=== PATIENT | female | born 1975 | race Caucasian/White ===

== ENCOUNTER 2025-07-15 20:16 | Emergency (ER) | payer OTHER, SELFPAY ==
[2025-07-15 20:20] VITALS: BP 137/83
[2025-07-15] MEDS: DECADRON 10 MG PO (21:39)
[2025-07-15] MEDS: TORADOL 15 MG IV (21:39)
[2025-07-15 21:48] LABS: Hematocrit 37.6 % (37.0-47.0); Hemoglobin 12.6 g/dL (12.0-16.0); Mean Corp Hgb Conc. 33.5 g/dL (33.0-37.0); Mean Corpuscular Volume 90.4 fL (81.0-99.0); Nucleated Red Blood Cells % 0 %; Platelet Count 305 10^3/uL (130-400); Red Cell Dist. Width 13.1 % (11.5-14.5)
--- NOTE | 2025-07-15 22:04 | ED.GENMED ---
History of Present Illness
General
Chief Complaint: Throat Problem
Time Seen by Provider: 07/15/25 20:53
History of Present Illness
History of Present Illness:
50-year-old female without significant past history presenting for left-sided throat pain. Patient notes that symptoms started yesterday. She reports that she had throat discomfort 2 weeks ago, was seen in urgent care and tested negative for
strep, however they did start her on antibiotics and symptoms improved after antibiotics. Symptoms went away, however again returned yesterday. Reports pain with swallowing. Denies fever or additional infectious symptoms. Denies prior history of
strep throat. Denies chest pain or difficulty breathing. No additional history obtained at this time.
Phy Exam
Physical Exam
Physical Exam:
General: Well-appearing, no clinical signs of dehydration, nontoxic and in no acute distress
HEENT: protecting airway, isolated swelling to the left tonsillar region without significant erythema. No exudates. No palpable fluctuance. No trismus or muffled voice.
Neck: appears supple
CV: Normal heart rate
Resp: No accessory muscle use, no increased work of breathing
Abd: No distention
Extremities: No deformities, no swelling
Neuro: alert, no focal neurologic deficit
: deferred
Rectal: deferred
Psych: Normal affect
Skin: Intact
Course
Orders/Labs/Results
Orders:
Orders
07/15/25 21:16
CT Neck With Iv Contrast Urgent
Comment:
Reason For Exam: L-tonsilar swelling and pain
Dexamethasone Pf [Decadron] 10 mg PO NOW STA
07/15/25 21:17
Ketorolac [Toradol] 15 mg IV NOW STA
07/15/25 21:38
Complete Blood Count/With Diff Urgent
Comprehensive Metabolic Panel Urgent
Monotest Urgent
Rapid Strep Group A Urgent
NINA Source: Throat/Pharynx
Specimen Description:
Date Specimen was Collected: 07/15/25
Time Specimen was Collected: 21:36
07/15/25 23:34
Clindamycin HCl [Cleocin] 450 mg PO NOW STA
Abnormal Lab Results
07/15/25
21:38
RBC 4.16 L 10^6/uL
(4.20-5.40)
MPV 10.6 H fL
(7.4-10.4)
Absolute Neuts (auto) 7.0 H 10^3/uL
(1.4-6.5)
Absolute Monos (auto) 0.7 H 10^3/uL
(0.1-0.6)
07/15/25 21:38
07/15/25 21:38
Vital Signs
Initial and Last Documented VS:
Initial Vital Signs
Temp Pulse Resp BP Pulse Ox
98.7 F 90 20 137/83 99
07/15/25 20:20 07/15/25 20:20 07/15/25 20:20 07/15/25 20:20 07/15/25 20:20
Last Documented Vital Signs
Temp Pulse Resp BP Pulse Ox
98 F 75 18 98/55 99
07/15/25 22:38 07/15/25 22:38 07/15/25 22:38 07/15/25 22:38 07/15/25 22:38
Procedures
Incision/Drainage/Joint Aspiration
L-VALIDATION SCIENTIST:
Anethesia: 1% Lidocaine
Type of procedure: aspiration
Nature of site: abscess
Description of abscess: less than 3cm
How much fluid was obtained?: small amount
Fluid description: purulent
Treatment: left open for drainage
MDM/Problems Addressed
MDM/Problems Addressed:
50-year-old female presenting to the emergency department for left neck pain since yesterday. Vital signs on arrival are normal
On exam patient is resting comfortably, no acute distress. No oropharyngeal compromise. There is isolated swelling to left tonsil, however no muffled voice, no trismus. Suspect developing strep pharyngitis and possible developing VALIDATION SCIENTIST. Patient
notes discomfort with any type of range of motion of neck. Retropharyngeal abscess is a consideration, however patient is overall nontoxic. Given return of symptoms after recent infection, will obtain CT imaging for further assessment. Will also
test for mono and retest for strep. Oral Decadron administered for symptoms
23:40 - patient CT is consistent with a 2.2 cm rim-enhancing mass, suspicious for VALIDATION SCIENTIST. Subsequently aspirated with about 1.5 cc of purulence discussed with ENT, can see in the office on Friday. Will change patient's antibiotics to clinda.
Otherwise she is stable for discharge. Return precautions discussed and patient verbalized understanding
*Pulse Oximetry
SaO2: 99
Oxygen Mode of Delivery: Room air
Patient hypoxic: no
*Critical Care Note
Total Time (30-74mins, 75-104mins- exclusive of procedures): Not Applicable
ED Attending Note
-
Portions of this chart may have been created with voice recognition software.� Occasional wrong word or��sound alike� substitutions may have occurred due to the inherent limitations of voice recognition software.
Discharge Plan
Departure
Referrals:
Latrice Vigil MD [Family Provider, Internal Medicine]
Interventions
Interventions:
*Risk Screen - Suicide Last Done: 07/15/25 20:36
*General Assessment Last Done: 07/15/25 20:20
*Neglect/Abuse Screening Last Done: 07/15/25 20:36
*ED COVID-19 Vaccine History Last Done: 07/15/25 20:36
*ED Influenza Vaccine History Last Done: 07/15/25 20:36
ED-EENT Assessment Last Done: 07/15/25 20:36
ED- Pulmonary Assessment Last Done: 07/15/25 22:23
Discharge Date and Time
Print Language: UKRAINIAN
[2025-07-15 22:06] LABS: ALT (SGPT) 19 U/L (0-35); AST (SGOT) 22 U/L (14-36); Albumin 4.8 g/dl (3.5-5.0); Alkaline Phosphatase 47 U/L (38-126); Blood Urea Nitrogen 14 mg/dl (7-17); Calcium 9.7 mg/dl (8.4-10.2); Carbon Dioxide 28 mmol/L (22-30); Chloride 106 mmol/L (98-107); Glucose 98 mg/dl (70-99); Potassium 4.0 mmol/L (3.5-5.1); Sodium 140 mmol/L (135-145); Total Protein 7.8 g/dl (6.3-8.2); eGFR > 60.00
[2025-07-15 22:38] VITALS: BP 98/55
[2025-07-15] MEDS: CLEOCIN 450 MG PO (23:39)
== END 2025-07-16 00:18 | disposition home or self-care (01) ==
LOC: EMR 20:16
PROVIDERS: EMERGENCY PHYSICIAN Student in an Organized Health Care Education/Training Program; FAMILY PHYSICIAN Internal Medicine
DX: J36 Peritonsillar abscess (principal)
CPT/HCPCS: 99284; 96374; 42700; 70491; 80053; 85025; 86308; 87070; 87880; Q9967

== ENCOUNTER 2025-07-18 06:18 | Inpatient (IN) | payer OTHER, SELFPAY ==
[2025-07-18] VITALS (8 sets, daily range): BP systolic 92–116; BP diastolic 59–71; BMI 21.7
--- NOTE | 2025-07-18 03:06 | ED.GENMED ---
History of Present Illness
General
Chief Complaint: Throat Problem
Source: patient, spouse, previous radiology exam (CT of the neck July 15 showing 2.2 cm rim-enhancing mass left tonsil.) and previous hospital records (ED visit for similar complaint July 15.)
Exam Limitations: none
Time Seen by Provider: 07/18/25 02:38
Nursing documentation reviewed up to this point in time: agreed with
History of Present Illness
History of Present Illness:
This is a 50-year-old female who presents with a recurrent left-sided sore throat and difficulty swallowing after prior treatment for an abscess of the left tonsil. Initially diagnosed with tonsillitis and treated with antibiotics approximately 2
weeks ago. The patient experienced improvement but the symptoms recurred 2 weeks later and she was evaluated in this ED on July 15. A CT of the neck showed a 2.2 cm rim-enhancing mass in the left tonsil consistent with a peritonsillar
abscess. The abscess was percutaneously drained in the ED and patient reported significant improvement the following day however pain and swelling have returned since yesterday, increasing throughout the day with increased throat pain and
difficulty swallowing. She has not had a fever but describes significant discomfort. 'It is hard to even honestly swallow water.' She was started on clindamycin which she has been compliant with. She has been taking ibuprofen with mild
improvement in pain. She has had difficulty swallowing soft foods but no choking nor gagging.
During ED visit on Friday, case discussed with ENT and the plan was for patient to call the ENT office today, Friday to schedule follow-up appointment tomorrow, Friday.
Laboratory studies on Friday were all unremarkable. Monospot was negative. Rapid strep and throat culture negative.
No history of similar episodes in the past.
Past History
Past History
ED Past Medical History: None
ED Past Surgical History: Cholecystectomy
Social History
Tobacco: Non-smoker
Alcohol: Occasional
Drug: None
Personal:
Living: with family
Family History
Family History: Other (Noncontributory)
Phy Exam
Physical Exam
Physical Exam:
GENERAL: 50-year-old woman appears her stated age, awake and alert, pleasant, appears mildly uncomfortable. Able to speak in full sentences. Speech is clear. Handling secretions well. Afebrile. and daughter are accompanying.
EYE: anicteric
NECK: Supple, mild tenderness left submandibular region, no meningismus, no significant adenopathy.
ENT: There is moderate swelling and erythema/induration left peritonsillar region with mild edema of uvula, no evidence of posterior pharyngeal edema, oral mucosa is moist. Tongue is midline without edema, no sublingual edema, right tonsil within
normal limits. TM clear b/l, nares patent.
CARDIAC: Regular rate and rhythm. no murmur.
LUNGS: Clear breath sounds bilaterally, no acute respiratory distress, no wheezes/rales/rhonchi
ABDOMEN: Soft, nondistended, without focal tenderness, normoactive BS.
NEUROLOGICAL: Alert and oriented x3, no focal neuro deficits. Gait is steady.
SKIN: Warm and dry, normal color, skin intact. No rash.
MUSCULOSKELETAL: No C/C/E. peripheral pulses are full and equal b/l. No palpable tenderness.
PSYCH: Normal and appropriate interaction.
Sepsis
Sepsis Screening
Sepsis Assessment: Sepsis Ruled Out
Sepsis Screen
Sepsis Screen: Sepsis Ruled Out
Date: 07/18/25
Time: 06:44
Course
Orders/Labs/Results
Orders:
Orders
07/18/25 02:53
CT Neck With Iv Contrast Urgent
Comment:
Reason For Exam: progressive L tonsillar swelling
0.9% Sodium Chloride 1000 ml [Nss] 1,000 ml IV BOLUS
Dexamethasone Sod Phosphate [Decadron] 10 mg IV NOW STA
07/18/25 03:20
Basic Metabolic Panel Urgent
Complete Blood Count/With Diff Urgent
07/18/25 06:08
Ampicillin/Sulbactam 3 G [Unasyn] 3 gm 0.9% Sodium Chloride 100 ml [Nss] 100 ml IV NOW
07/18/25 06:12
Admit/Transfer Patient As Directed
Co-Sign Provider:
Level of Care: Inpatient admission
Assign to:: Medical/Surgical
Physician / Group: Lino
Diagnosis: Peritonsillar Abscess
Reason for Hospitalization: Peritonsillar Abscess
Expected length of stay greater than two midnights?: Yes
ELOS- Estimated Length of Stay in days: 2
I certify the patient meets the requirements for IP care: Yes
PRN Pain Medication Management As Directed
May give lesser potent ordered pain med per pt: Yes
preference::
Protocol:: Medication orders for pain may be administered in a
manner that supports deferring to patient preference
when the pt is:
- Requesting an ordered lesser potent pain medication.
Least to most potent pain medications are defined
as: acetaminophen < NSAID < tramadol < opioids
(morphine, oxycodone, hydromorphone).
- Requesting a lesser dose of the same medication IF
ORDERED.
- Requesting a less intrusive route of administration
if both routes are prescribed by the provider (PO <
IV).
07/18/25 06:13
Code Status As Directed
Resuscitation Status: Full Code
Abnormal Lab Results
07/18/25
03:20
RBC 3.66 L 10^6/uL
(4.20-5.40)
Hgb 11.0 L g/dL
(12.0-16.0)
Hct 33.1 L %
(37.0-47.0)
MPV 10.7 H fL
(7.4-10.4)
Absolute Monos (auto) 0.7 H 10^3/uL
(0.1-0.6)
Chloride 108 H mmol/L
(98-107)
07/18/25 03:20
07/18/25 03:20
Vital Signs
Initial and Last Documented VS:
Initial Vital Signs
Temp Pulse Resp BP Pulse Ox
97.6 F 74 24 116/60 100
07/18/25 02:24 07/18/25 02:24 07/18/25 02:24 07/18/25 02:24 07/18/25 02:24
Last Documented Vital Signs
Temp Pulse Resp BP Pulse Ox
98.7 F 73 16 94/59 98
07/18/25 06:25 07/18/25 06:25 07/18/25 06:25 07/18/25 06:25 07/18/25 06:25
MDM/Problems Addressed
Differential Diagnosis Includes:
Differential diagnosis:
Recurrent tonsillar abscess
Tonsillitis
Pharyngitis
Peritonsillar cellulitis
Epiglottitis
Retropharyngeal abscess
Squamous cell carcinoma is less likely
MDM/Problems Addressed:
Recurrent left sided sore throat, left posterior pharyngeal swelling
Exam notable for significant left peritonsillar edema, induration, concern for recurrent peritonsillar abscess, concern for extension to the retropharyngeal region, less likely carcinoma.
Will recheck labs, initiate IV fluids, IV dose of Decadron and will repeat CT.
Will plan to discussed with ENT.
*Radiology
Radiology exam reviewed: radiology read reviewed
*Pulse Oximetry
SaO2: 100
Oxygen Mode of Delivery: Room air
Patient hypoxic: no
*Critical Care Note
Total Time (30-74mins, 75-104mins- exclusive of procedures): Not Applicable
Update Note
Update Note:
05:45
Labs are reassuring.
CAT scan shows recurrent left peritonsillar abscess, larger compared to previous imaging with abscess measuring 2.4 cm in maximum dimension. There is a calcification centrally this collection suggesting the cause. There is mild to moderate oral
airway effacement.
Case discussed with ENT, Dr. Frias. Recommend admission to hospital service, IV antibiotics with Unasyn, continue IV steroids. Will keep n.p.o. with plan for drainage by ENT.
ED Attending Note
-
Portions of this chart may have been created with voice recognition software.� Occasional wrong word or��sound alike� substitutions may have occurred due to the inherent limitations of voice recognition software.
Discharge Plan
Departure
Patient Disposition: Admit
Date of Disposition: 07/18/25
Time of Disposition: 05:55
Admit to: Med/Surg
Admit to doctor: Lino
Presentation/result/management discussed w/ accepting MD/DO: Hospitalist
Condition: Fair
Discharge Problem:
recurrrent L peritonsillar abscess
Interventions
Interventions:
*Risk Screen - Suicide Last Done: 07/18/25 02:24
*General Assessment Last Done: 07/18/25 03:15
*Neglect/Abuse Screening Last Done: 07/18/25 02:24
*ED- Fall Risk Assessment Last Done: 07/18/25 03:14
*ED COVID-19 Vaccine History Last Done: 07/18/25 03:14
*ED Influenza Vaccine History Last Done: 07/18/25 03:14
ED-EENT Assessment Last Done: 07/18/25 03:15
ED- Pulmonary Assessment Last Done: 07/18/25 03:15
[2025-07-18] MEDS: NSS 1000 IV (03:28)
[2025-07-18] MEDS: DECADRON 10 MG IV (03:28)
[2025-07-18 03:30] LABS: Hematocrit 33.1 % (37.0-47.0); Hemoglobin 11.0 g/dL (12.0-16.0); Mean Corp Hgb Conc. 33.2 g/dL (33.0-37.0); Mean Corpuscular Volume 90.4 fL (81.0-99.0); Nucleated Red Blood Cells % 0 %; Platelet Count 248 10^3/uL (130-400); Red Cell Dist. Width 13.2 % (11.5-14.5)
[2025-07-18 03:57] LABS: Blood Urea Nitrogen 13 mg/dl (7-17); Calcium 9.8 mg/dl (8.4-10.2); Carbon Dioxide 26 mmol/L (22-30); Chloride 108 mmol/L (98-107); Estimated Creatinine Clearance 85 ml/min; Glucose 85 mg/dl (70-99); Potassium 4.0 mmol/L (3.5-5.1); Sodium 138 mmol/L (135-145); eGFR > 60.00
--- NOTE | 2025-07-18 06:15 | HPS.HSE ---
Family Physician
-
Family Physician: Latrice Vigil
Chief Complaint
-
Sore Throat
History of Present Illness
Patient is a 50y F with no significant PMH who presents to ED complaining of left-sided sore throat. Patient initially started with sore throat, painful swallowing about 2 weeks ago. She was seen at Urgent Care at that time and started on
Augmentin with improvement in her symptoms. She completed a week course and felt well. On of last week her symptoms started to return. by Friday evening she again had severe pain and presented to the ED for evaluation. CT in the ED
showed peritonsillar abscess of 2.2cm. This was aspirated in the ED (1.5cc) and patient was discharged on clindamycin. She felt significant improvement for about 24 hours after aspiration and then symptoms again returned. This evening she returns
to the ED with recurrent, severe, left-sided throat pain.
Medical History
Past Medical History
Past Medical History: Reports None
Past Surgical History: Reports Other
Additional Past Surgical History:
Cholecystectomy
Social History
Tobacco: Non-smoker
Alcohol: Occasional
Drug: None
Personal:
Living: With Family
Family History
Family History: Not pertinent
Allergies / Home Medications
Allergies reflects when Allergies were last updated in [facility].
Home Medications with original date entered in [facility]
Allergy/Medication List:
Allergies
Allergy/AdvReac Type Severity Reaction Status Date / Time
No Known Allergies Allergy Verified 07/18/25 02:27
Home Medications
clindamycin HCl 150 mg capsule (Cleocin HCl) 450 mg (3 x 150 mg) PO TID 7 days #63 caps 07/15/25
Review of Systems
-
History Source: Patient
A 12 point ROS was completed and negative except as noted: Yes
Constitutional: Denies Fever or Chills
EENT: Reports Sore Throat; Denies Runny Nose
Respiratory: Denies Cough or Trouble Breathing
Cardiac: Denies Chest Pain or Palpitations
Abdomen/GI: Denies Abdominal Pain, Nausea, Vomiting or Diarrhea
: Denies Dysuria or Flank Pain
Musculoskeletal: Denies Joint Pain or Edema
Neurological: Reports Headache; Denies Dizzy
Psych: Denies Depression or Anxiety
Physical Exam
Vital Signs
Vital Signs
Temp Pulse Resp BP Pulse Ox
99.1 F 76 24 97/60 100
07/18/25 04:00 07/18/25 03:36 07/18/25 02:24 07/18/25 04:08 07/18/25 04:08
Physical Exam
General: Other (50y F in no acute distress.)
HEENT: Other (Erythema and edema in posterior pharynx - predominately L sided. Uvula deviated to the R. Cervical adenopathy on the L. Mild tenderness externally.)
Respiratory: Clear
Cardiac: S1/S2 and Regular Rhythm
Musculoskeletal: No Clubbing, No Cyanosis and No Edema
Neuro: AO x 3
Laboratory Results
-
07/18/25 03:20
07/18/25 03:20
Impression/Plan
-
A/P: Patient is a 50y F with no significant PMH who presents to ED complaining of recurrent sore throat.
Left Peritonsillar Abscess
- Admit for further evaluation and treatment.
- Change clindamycin to IV Unasyn and add dexamethasone.
- Appreciate ENT recommendations.
- To evaluate this AM for definitive drainage procedure.
- Supportive care including pain control, IVFs, etc.
DVT Prophylaxis: SCDs
Code Status: Full
[2025-07-18] MEDS: UNASYN IV ×4 (06:23→23:11)
--- NOTE | 2025-07-18 08:09 | W.CON.OTO ---
Addendum entered and electronically signed by Jasen Frias, DO 07/18/25 08:39:
Addendum to HPI below - 07/16/25 date should read 07/15/25.
Original Note:
Otolaryngology Consult
Consult
Date/Time Consultation Requested: 07/18/25 49
Date/Time Consultation Performed: 07/18/25 4801
Requesting Provider: Dr. Williamson
Performing Provider: Dr. Frias
Reason for Consultation: Recurrent Left ASSISTANT OCEANOGRAPHER
Chief Complaint
Recurrent left ASSISTANT OCEANOGRAPHER
History of Present Illness
This is a 50yo woman who returns to the ED with a recurrent left ASSISTANT OCEANOGRAPHER. Initially had a sore throat around 07/08/25 and was treated with 7 days of Augmentin from Urgent Care that she completed aorund 07/14/25. She was feeling better then symptoms of
sore throat and odynophagia returned. Went to ED on 07/16/25 and was dx with a left ASSISTANT OCEANOGRAPHER that was drained by the ER. She was sent home on clindamycin. Returns on 07/18/25 with return of left sore throat and odynophagia. CT neck w/ contrast Demonstrated
recollection of her left peritonsillar abscess measuring approximately 2.2 x 2.2 cm. ENT was consulted for evaluation and management recommendations.
At the time of evaluation patient was resting comfortably in bed in no acute distress. No trismus or drooling. She felt markedly better since returning to the ER and receiving doses of Unasyn and Decadron. She has never had recurrent PTAs in the
past. No prior major head or neck surgery. Currently has no difficulty breathing.
Medical History
Past Medical History: None
Past Surgical History: None
Patient Allergies:
Allergies
Allergy/AdvReac Type Severity Reaction Status Date / Time
No Known Allergies Allergy Verified 07/18/25 02:27
Physical Exam
Vitals / Labs:
Vital Signs
Temp 98.7 F 07/18/25 06:25
Temp route: Oral 07/18/25 06:25
Pulse 73 07/18/25 06:25
Resp Rate 16 07/18/25 06:25
Blood pressure 94/59 07/18/25 06:25
Blood pressure extremity used: Left upper arm 07/18/25 06:25
Position: Lying 07/18/25 06:25
MAP (cuff-Lashell Monitor) 72 07/18/25 04:08
SaO2 98 07/18/25 06:25
Oxygen Mode of Delivery Room air 07/18/25 06:25
Acceptable pain level during hospitalization? 0 07/18/25 02:24
Can the patient verbally communicate their pain? Yes 07/18/25 02:24
Pain scale ratin 07/18/25 02:24
Actual Weight 57.4 kg 07/18/25 03:13
Body Mass Index (BMI) 21.7 07/18/25 03:13
Lab Results
07/18/25 03:20
07/18/25 03:20
Exam:
Otolaryngology specialty specific physical exam: No acute distress. No muffled voice. No trismus and no drooling. Tolerating secretions well. Danyel. Erythema and edema of the left oropharynx and soft palate with right uvular deviation. Left
palate effaced.
Procedure: Incision and drainage left peritonsillar abscess
Indications: Recurrent left peritonsillar abscess, sore throat
Anesthesia: 3 cc of 1% lidocaine with epinephrine 1 100,000 locally injected
Details: After verbal consent was obtained and all questions were answered from the patient and her spouse, the patient was seated upright in the hospital stretcher. An empty 10 cc syringe with an 18-gauge sharp needle was used to aspirate the left
peritonsillar space with immediate return of about 7 cc of purulence. This was repeated twice for additional return of purulent material. After this, a #11 blade Was used to make an incision over the left peritonsillar space to allow for
continued egress of fluid. This was probed with a culture swab and loculations were gently broken up. The cavity was then irrigated with a 20-gauge Angiocath and 50 cc of sterile saline. The patient tolerated the procedure well. The aspirate was
sent for culture.
Complications: None immediately present.
Assessment / Plan
This is a 50-year-old woman with a recurrent left peritonsillar abscess
patient's main risk factor for recurrence was size of abscess. I am optimistic that this second drainage procedure will be all that she needs. I discussed several management options with her and recommended repeat drainage, which is documented
and described above, followed by admission to the medical service for IV antibiotics and IV steroids to allow for close monitoring and identification of another recollection. The patient and her spouse seemed amenable to this plan; however, I will
defer ultimate decision up to them if she is feeling much better and can take oral medications at home with close outpatient follow-up with me.
Recommendations:
- Admission to the medical service for at least 24 hours of IV antibiotics and dexamethasone 8 mg every 8 hours
- I had initially recommended she start back on Unasyn, however learning that she had completed a course of Augmentin as an outpatient before the first ASSISTANT OCEANOGRAPHER and failed that (marked by development of ASSISTANT OCEANOGRAPHER), she should return to clindamycin pending
final culture results as it is probably not fair to call this current course of clindamycin a failure of antibiotics
- After 24-48h of IV therapy can transition to oral antibiotics and steroids as tolerated. She will complete a total of 14 days of antibiotics and should be discharged with a Medrol Dosepak from the hospital.
- Recommend close outpatient follow-up with me within 1 to 2 weeks possible discharge. Phone number to call for appointment is [phone].
Please contact with questions or concerns, available on [facility]
Data Reviewed
Radiology: Report Reviewed by me and Discussed with Patient
CT Scan: Image Personally Visualized and interpreted ( CT soft tissue neck 07/18/2025: Left rim-enhancing hypodense fluid collection in the left peritonsillar space likely consistent with recurrent left peritonsillar abscess. Minimal to no
parapharyngeal extension with preservation of parapharyngeal fat.) and Discussed with Patient
Lab Data: Labs Reviewed by me (WBC 10.2 (stable from prior), and plt 248 (stable from prior))
[2025-07-18] MEDS: TORADOL 10 MG IV (08:25)
[2025-07-18] MEDS: LR 1000 IV ×2 (09:39→18:07)
--- NOTE | 2025-07-18 09:46 | W.PN.HOSP.TC ---
Today's Communication/Plan
-
apprec ENT
pain control
await cultures
Assessment / Plan
Assessment / Plan
pt is a 50 year old female
Left Peritonsillar Abscess--was on and off ABX--finished Augmentin and then on clinda--now on IV Unasyn--s/p I&D in ED and by ENT--cultures sent--apprec ENT--cont IV steroids
DVT Proph--SCDs
Code Status--Full Code
Anticipated Discharge: 24 - 48 hours
Subjective/Interval History
-
Date of Service: July 18, 2025
pt still in pain--s/p I&D by ENT at bedside
Objective Data
-
Labs:
Laboratory Results
07/18/25
03:20
WBC 10.2
Hgb 11.0 L
Hct 33.1 L
Plt Count 248
Sodium 138
Potassium 4.0
Chloride 108 H
Carbon Dioxide 26
BUN 13
Creatinine 0.7
Glucose 85
Calcium 9.8
Vital Signs:
max temp for 24 hours
07/18/25
04:00
Temp 99.1 F
Vital Signs
Temp Pulse Resp BP Pulse Ox
98.5 F 73 20 97/60 99
07/18/25 09:05 07/18/25 09:05 07/18/25 09:05 07/18/25 09:05 07/18/25 09:05
Review of Systems
-
All other systems: Reviewed and negative
EENT: Reports Sore Throat (throat pain)
Physical Exam
-
General: Well Developed, Well Nourished and No Apparent Distress
HEENT: Normocephalic, Atraumatic and Other (limited oral view--red upper soft tissue palate); Negative Oxygen
Respiratory: Clear to Auscultation; Negative Wheezes or Rhonchi
Cardiac: Regular Rhythm and S1/S2; Negative Murmur
GI: Soft, Nontender, Nondistended and Normal Bowel Sounds
Musculoskeletal: No Clubbing, No Cyanosis and No Edema
Skin: Warm
Neuro: Awake, Alert and Nonfocal/Grossly Intact
--- NOTE | 2025-07-18 09:49 | CM ---
Patient seen in ED with physician and patient spouse. Patient states that she works from home with . Patient states that she has no DME at home. Her PCP is Dr. Hazel and she uses the [facility] in [place] and patient plan is to return to home
with in 2 story home. CM will continue to follow for discharge planning needs.
Plan; home with no needs; watch for possible IV antibiotics/ home with VN.
[2025-07-18] MEDS: DECADRON 8 MG IV ×2 (13:02→19:36)
[2025-07-19] MEDS: UNASYN IV (05:11)
[2025-07-19] MEDS: DECADRON 8 MG IV (05:11)
[2025-07-19] MEDS: LR 1000 IV (05:11)
[2025-07-19 06:50] LABS: Hematocrit 31.2 % (37.0-47.0); Hemoglobin 10.7 g/dL (12.0-16.0); Mean Corp Hgb Conc. 34.3 g/dL (33.0-37.0); Mean Corpuscular Volume 91.5 fL (81.0-99.0); Platelet Count 250 10^3/uL (130-400); Red Cell Dist. Width 12.9 % (11.5-14.5)
[2025-07-19 07:00] VITALS: BP 92/66
[2025-07-19 07:20] LABS: Blood Urea Nitrogen 11 mg/dl (7-17); Calcium 9.1 mg/dl (8.4-10.2); Carbon Dioxide 26 mmol/L (22-30); Chloride 108 mmol/L (98-107); Estimated Creatinine Clearance 99 ml/min; Glucose 115 mg/dl (70-99); Magnesium 2.1 mg/dl (1.6-2.3); Potassium 4.2 mmol/L (3.5-5.1); Sodium 138 mmol/L (135-145); eGFR > 60.00
--- NOTE | 2025-07-19 08:25 | W.PN.ENT ---
Today's Communication
-
Lab results reviewed: CBC 07/19/25 - WBC 9.9 and Hgb 10.7 - both stable from prior on 07/18/25
Impression / Plan
-
30-year-old woman with recurrent left peritonsillar abscess status post incision and drainage on 07/18/2025
The patient is feeling much better this morning and this matches the improvement seen on physical exam
Recommendations:
- I still do think she should be on clindamycin. She failed outpatient Augmentin with development of her first left DIRECTOR VALIDATION, then underwent incomplete needle aspiration in the ER on 07/15 and was discharged on clindamycin and returned on 07/18 with
recurrent left DIRECTOR VALIDATION. I do not think this is necessarily a failure of clindamycin.
- Either way she should complete a total of 14 days of culture-directed antibiotic therapy
- Patient appears safe to transition to oral medications as tolerated
- Medrol Dosepak upon discharge
- I discussed that she should have outpatient follow-up in our ENT office within 2 weeks of hospital discharge and information was left at her bedside.
Please contact with questions or concerns
Subjective Data
-
Patient seen and examined at bedside this morning. She was up walking the halls and we finished her walk together. Feeling much better, tolerated soft and pur�ed foods for dinner last night. No sharp pain with swallowing. No difficulty breathing.
Objective Data
-
Vital Signs
Temp Pulse Resp BP Pulse Ox
98.2 F 75 16 92/64 100
07/18/25 23:19 07/18/25 23:19 07/18/25 15:39 07/18/25 23:19 07/18/25 15:39
Intake & Output
07/18/25 07/19/25 07/20/25
06:59 06:59 06:59
Intake:
Oral fluids 480 / 480
IV fluids (Total) 1100 / 1100
IV piggybacks 240 / 240
Output:
Urine, Voided 2 / 2
Lab Results
07/19/25 06:28
07/19/25 06:28
Calcium 9.1 mg/dl (8.4-10.2) 07/19/25 06:28
Magnesium 2.1 mg/dl (1.6-2.3) 07/19/25 06:28
Physical Exam
-
Otolaryngology specialty specific physical exam: No acute distress. No trismus. Uvula midline left. Left palatal effacement markedly improved. Left palatal ecchymosis from prior incision and drainage. Likely
Data Reviewed
-
Micro Results: Report Reviewed (Culture 07/15/25 - strept species neg)
Laboratory Results
-
07/19/25 06:28
07/19/25 06:28
--- NOTE | 2025-07-19 10:59 | W.PN.HOSP.TC ---
Today's Communication/Plan
-
d/c
Assessment / Plan
Assessment / Plan
pt is a 50 year old female
Left Peritonsillar Abscess--was on and off ABX--finished Augmentin and then on clinda--now on IV Unasyn, will change to clindamycin as requested by ENT--culture is pending--explained for pt to take probiotic while on clindamycin--s/p I&D in ED and
by ENT--apprec ENT--change IV steroids to PO
DVT Proph--SCDs
Code Status--Full Code
Anticipated Discharge: Today
Subjective/Interval History
-
Date of Service: July 19, 2025
pt feels great and wants to go home
Objective Data
-
Labs:
Laboratory Results
07/19/25
06:28
WBC 9.9
Hgb 10.7 L
Hct 31.2 L
Plt Count 250
Sodium 138
Potassium 4.2
Chloride 108 H
Carbon Dioxide 26
BUN 11
Creatinine 0.6
Glucose 115 H
Calcium 9.1
Vital Signs:
max temp for 24 hours
07/18/25
23:19
Temp 98.2 F
Vital Signs
Temp Pulse Resp BP Pulse Ox
97.9 F 69 18 92/66 100
07/19/25 07:00 07/19/25 07:00 07/19/25 07:00 07/19/25 07:00 07/19/25 07:50
I&O
07/18/25 07/19/25 07/20/25
06:59 06:59 06:59
Intake Total 1819 / 1819
Output Total / 2
Balance 1817
Review of Systems
-
All other systems: Reviewed and negative
EENT: Reports Sore Throat (mild)
Physical Exam
-
General: Well Developed, Well Nourished and No Apparent Distress
HEENT: Normocephalic, Atraumatic and Other (left roof of mouth dark red no other patches or pockets noted)
Respiratory: Clear to Auscultation; Negative Wheezes or Rhonchi
Cardiac: Regular Rhythm and S1/S2; Negative Murmur
GI: Soft, Nontender, Nondistended and Normal Bowel Sounds
Musculoskeletal: No Clubbing, No Cyanosis and No Edema
Neuro: Awake
Psych: Calm
[2025-07-19 11:30] VITALS: BP 108/86
--- NOTE | 2025-07-19 13:06 | CM ---
Patient for discharge home today. Patient seen at bedside with daughter and physician on . Patient stated that she was eager to go home. CM will continue to follow for discharge planning needs.
Plan; home with no needs.
--- NOTE | 2025-07-19 14:59 | W.PN.UPDATE ---
Update Note
Progress Note Update
Cultures returned and showed viridans Streptococcus sensitive to penicillin G and V. Called patient and explained the results and that I feel more comfortable giving her back the Augmentin (amoxicillin/clavulanic acid) for 2 weeks.
She is agreeable with this plan. I told her to stop the clindamycin and to keep that on hand if anything were to further develop.
--- NOTE | 2025-07-19 15:01 | W.DCSUMMARY ---
Discharge Summary
Discharge Data
Date of Admission: 07/18/25
Date of Discharge: 07/19/25
-
Pending Results: No
Hospital Course
Primary care physician : Latrice Vigil
Principal Discharge diagnosis : Left peritonsillar abscess
Chronic Discharge diagnosis : None
Hospital Course : Patient was a 50-year-old female who presented complaining of left-sided sore throat. Patient stated that she had a sore throat which was very painful on swallowing starting about 2 weeks prior. She was seen in urgent care at
that time and started on Augmentin with improvement in her symptoms. She completed a week course and felt well. On prior to admission she stated that her symptoms started to return. By that Friday she had severe pain and presented to the
ED. CAT scan in the ED showed a peritonsillar abscess of 2.2 cm. This was aspirated in the emergency department for 1.5 cc and the patient was discharged on clindamycin. She felt improvement for 24 hours after aspiration and symptoms again
returned. She then returned to the emergency department again with severe recurrent left-sided throat pain. Patient was admitted.
Problem #1: Left peritonsillar abscess. Patient was admitted and started on IV Unasyn. She was seen in consultation by ENT. It was also recommended to have dexamethasone IV 8 mg every 8 hours. Patient had a second incision and drainage by the
ENT with return of 7 mL of purulence. Cultures were sent. ENT strongly recommended the patient to go back on clindamycin and since the patient wanted to go home I did prescribe that for her on discharge. After the patient left the hospital,
culture results came back positive for viridans Streptococcus for which penicillin is the recommended treatment of choice. I then called the patient back and explained the situation. I told her to stop the clindamycin and keep it on hand for any
recurrence. I am re-prescribing her amoxicillin/clavulanic acid 875 mg twice daily for 14 days. It is possible that the first 7-day course was not long enough. I would not call that a failure since the patient's symptoms resolved but returned.
14-day course is more desirable. In addition, patient was started on a Medrol Dosepak. Given the amount of steroid IV, I recommended that she take the full Medrol Dosepak for the next 5 to 6 days. She is to follow back up with ENT in 1 to 2
weeks. She also has been instructed to take probiotics while on the antibiotics.
Patient is stable for discharge home at this time. If there are any questions regarding this dictation or her hospital stay, please do not hesitate to call. Our office number is [phone].
Important imaging findings :
NECK CT SCAN 07/15/25 IMPRESSION:
1. 2.2 cm rim-enhancing mass in the left side of the oropharynx most consistent with a LARGE LEFT PERITONSILLAR ABSCESS. Squamous cell carcinoma is considered less likely.
2. Mild bilateral cervical lymphadenopathy.
NECK CT SCAN 07/18/25 IMPRESSION:
Left peritonsillar abscess measuring just slightly larger in size in comparison to recent prior study, as noted above.
Wound/abscess/other Cult Preliminary 07/19/25-1138
Moderate Viridans Streptococcus Group
Penicillin G or V with or without Gentamicin is the drug of
choice for treating Viridans Streptococcus Group.
Procedure findings :
Procedure: Incision and drainage left peritonsillar abscess
Indications: Recurrent left peritonsillar abscess, sore throat
Anesthesia: 3 cc of 1% lidocaine with epinephrine 1 100,000 locally injected
Details: After verbal consent was obtained and all questions were answered from the patient and her spouse, the patient was seated upright in the hospital stretcher. An empty 10 cc syringe with an 18-gauge sharp needle was used to aspirate the left
peritonsillar space with immediate return of about 7 cc of purulence. This was repeated twice for additional return of purulent material. After this, a #11 blade Was used to make an incision over the left peritonsillar space to allow for
continued egress of fluid. This was probed with a culture swab and loculations were gently broken up. The cavity was then irrigated with a 20-gauge Angiocath and 50 cc of sterile saline. The patient tolerated the procedure well. The aspirate was
sent for culture.
Complications: None immediately present.
Discharge Plan
-
Patient Disposition: Home (Routine Discharge)
Discharge Diagnosis/Procedures: left peritonsillar abscess--s/p I&D
Condition: Good
Diet: Other diet
Additional Diets: soft foods advance as tolerated
Activity: As tolerated
Driving Restrictions: As prior to admission
Bathing Restrictions: None
Referrals:
Jasen Frias DO [Active, ENT] - in two weeks
Latrice Vigil MD [Family Provider, Internal Medicine] - in less than 1 week
Additional Discharge Medication Instructions: You should complete 12 days of clindamycin--use what you have at home and I have given you 8 more days--IF you need more, please contact your primary or ENT.
Please use probiotics while on your clindamycin.
You have been prescribed a medrol dose pack--you were on a higher dose of steroid here so finish the complete pack as directed.
Prescriptions:
New
acetaminophen 325 mg Tablet
650 mg PO Q4HPRN PRN (Reason: Mild Pain / Temp > 101) Qty: 0 0RF
methylprednisolone [Medrol (Juan)] 4 mg tablets,dose pack
See Rx Instructions .ROUTE .COMPLEX Qty: 21 0RF
Rx Instructions:
for 6 days
clindamycin HCl [Cleocin HCl] 150 mg capsule
450 mg PO TID 8 Days Qty: 72 0RF
amoxicillin-pot clavulanate 875-125 mg tablet
1 tab PO BID 14 Days Qty: 28 0RF
Continued
clindamycin HCl [Cleocin HCl] 150 mg capsule
450 mg PO TID 7 Days Qty: 63 0RF
Discharge Orders:
Discharge Patient (As Directed); Ordered 07/19/25
Ordered By: Jennifer Faustin
Discharge Date and Time
Discharge Date/Time: 07/19/25 11:43
Print Language: CITIZEN OF [place]
== END 2025-07-19 11:43 | disposition home or self-care (01) | DRG 145 ==
LOC: 4 WEST ACU 06:18
PROVIDERS: ADMITTING PHYSICIAN Hospitalist; ATTENDING PHYSICIAN Internal Medicine; CONSULT PHYSICIAN Student in an Organized Health Care Education/Training Program; EMERGENCY PHYSICIAN Emergency Medicine; FAMILY PHYSICIAN Internal Medicine
PROC: 0C9PXZZ Drainage of Tonsils, External Approach (ICD-10-PCS; 2025-07-18)
DX: J36 Peritonsillar abscess (principal)
CPT/HCPCS: 70491; 80048; 83735; 85025; 85027; 87070; 87077; 87205; 96361; 96374; 99285; Q9967